=== PATIENT | male | born 1945 | race Caucasian/White ===

== ENCOUNTER → 2016-04-12 | Outpatient (CLI) | payer MEDICARE ==
--- NOTE | 2016-04-13 09:43 | XR ---
Bilateral knees HISTORY: Knee pain 3 views of both knees submitted on a total of 6 images There is marginal spurring greatest in the medial compartments with joint space loss, subchondral scl erosis, alignment and bone mineralization are maintained. Spurring also present at the patellofemoral joints, there may be some associated chondrocalcinosis. No sizable joint effusions. 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
== END | disposition home or self-care (01) ==
LOC: RADXRYALE 10:11
PROVIDERS: ATTEND Internal Medicine
DX: M25.561 Pain in right knee (principal); M25.562 Pain in left knee